=== PATIENT | male | born 1950 | race Caucasian/White ===

== ENCOUNTER 2021-01-30 07:48 | Outpatient (RCR) | payer MEDICARE, OTHER, SELFPAY ==
--- NOTE | 2021-01-30 08:56 | PTOPEVAL ---
Thank you for referring Derek Catsro to [facility].? The patient is scheduled to be seen for therapy? ____x/week for ___ weeks. Please review, sign, date and return this plan of care AIDA. I agree with and certify that the following plan of care is medically necessary. Referring Physician Date Admitting Provider: Attending Provider: Bakari Guallpa, MD Referring Provider: *PT Outpatient Evaluation Start: 01/30/21 07:52 Freq: Status: Active Protocol: Document 01/30/21 07:59 ACR (Rec: 01/30/21 08:55 ACR [email or web address]) Therapy Assessment Status Assessment Status Assessment Status Evaluation Evaluation Information Problem Diagnosis lateral and medial meniscus repair and arthroscopy Onset 01/20/21 Subjective Information Patient reports he plays Query Text:As Reported By Patient/ tennis and he was having Family trouble changing directions. He states walking was fine, but any time he went down steps or down hill he had quite a bit of pain. Patient states that since surgery he still has difficulty with going down steps and down hill . He also states that getting up from the floor because he cannot put weight through that knee. Patient states that his goal for therapy is to get back to tennis. Prior Level of Function Activity Level (Last 3 Months) Occupation retired Hand Dominance Right Activity of Daily Living Ability Independent Indoor/Home Mobility Independent Community Mobility Independent Stairs Ability Independent Functional Cognition (Planning, Shopping Independent , Taking Medications) Cooking Yes Cleaning Yes Laundry Yes Shopping Yes Driving Yes Pain Assessment Timing of Pain Assessment Timing of Pain Assessment Assessment Pain Scale Pain Scale Used Numeric (1 - 10) Self Report Pain Assessment Right Knee(s) Reported Pain Level 0 Greatest Pain Intensity 3 Pain Score Pain Score 0: Self Report Interventions Used Interventions Used By Clinicians Activity or ADL's,Exercise Lower Extremity Range of Motion Knee Range of Motion Right Knee Flexion Range of Motion - Active 111 Knee Extension Range of Motion - Act
--- NOTE | 2021-02-20 08:26 | PTOPEVAL ---
Thank you for referring Derek Castro to [facility].? The patient is scheduled to be seen for therapy? ____x/week for ___ weeks. Please review, sign, date and return this plan of care AIDA. I agree with and certify that the following plan of care is medically necessary. Referring Physician Date Admitting Provider: Attending Provider: Bakari Guallpa, Referring Provider: *PT Outpatient Evaluation Start: 01/30/21 07:52 Freq: Status: Active Protocol: Document 02/13/21 08:00 ACR (Rec: 02/13/21 09:01 ACR [email or web address]) Therapy Assessment Status Assessment Status Assessment Status Progress Evaluation Information Problem Diagnosis lateral and medial meniscus repair and arthroscopy Onset 01/20/21 Subjective Information Patient states that since Query Text:As Reported By Patient/ beginning therapy he states Family that he is feeling so much better. He states that his knee feels better than before the surgery. He states he jogged through the yard this weekend and it did not hurt. He states that going down the steps is much easier. He states that he has some difficulty with forward and backward running and side shuffling. Pain Assessment Timing of Pain Assessment Timing of Pain Assessment Assessment Pain Scale Pain Scale Used Numeric (1 - 10) Self Report Pain Assessment Right Knee(s) Reported Pain Level 0 Greatest Pain Intensity 0 Pain Score Pain Score 0: Self Report Interventions Used Interventions Used By Clinicians Activity or ADL's,Exercise Lower Extremity Muscle Strength Testing Knee Strength Right Knee Flexion Strength 5 Normal Knee Extension Strength 4 Good General Exercise General Exercises Exercise Description -Pt. performs nustep 10 Query Text:Record Sets, Reps, minutes level 6 with bilateral Resistance, and Position UE's and LE's for CV and LE mm warm up and endurance to return to prior level recreational activities. TherEx - heel/toe raises x 30 reps - hip abduction x 30 B - hip extension x 30 B - slantboard board stretch 3x1 minute knees extended
--- NOTE | 2021-03-15 09:06 | PTOPEVAL ---
Thank you for referring Derek Castro to [facility].? The patient is scheduled to be seen for therapy? ____x/week for ___ weeks. Please review, sign, date and return this plan of care AIDA. I agree with and certify that the following plan of care is medically necessary. Referring Physician Date Admitting Provider: Attending Provider: Bakari Guallpa, MD Referring Provider: *PT Outpatient Evaluation Start: 01/30/21 07:52 Freq: Status: Active Protocol: Document 03/15/21 07:58 ACR (Rec: 03/15/21 09:06 ACR [email or web address]) Therapy Assessment Status Assessment Status Assessment Status Progress Evaluation Information Problem Diagnosis lateral and medial meniscus repair and arthroscopy Onset 01/20/21 Subjective Information Patient states that it is Query Text:As Reported By Patient/ still feeling pretty good, but Family thinks he overdid it with the leg press and the pain was bad. He was playing a lot of tennis, but is resting right now because the pain is so bad and spent a majority of the holidays with ice on it. The patient reports going side to side is not as bad, but running forward and backward is very difficult for him. Pain Assessment Timing of Pain Assessment Timing of Pain Assessment Assessment Pain Scale Pain Scale Used Numeric (1 - 10) Self Report Pain Assessment Right Knee(s) Reported Pain Level 0 Greatest Pain Intensity 8 Pain Score Pain Score 0: Self Report Interventions Used Interventions Used By Clinicians Activity or ADL's,Exercise Lower Extremity Range of Motion Knee Range of Motion Right Knee Flexion Range of Motion - Active 0 Knee Extension Range of Motion - Active 125 Query Text: Lower Extremity Muscle Strength Testing Knee Strength Right Knee Flexion Strength 5 Normal Knee Extension Strength 5 Normal Extremity Circumference Assessment Circumference Assessment Location Right Body Part Knee Site Descriptor ([place]) medial joint line Circumference (cm) 39 Noninvolved Side Circumference (cm) 40 General Exercise General Exercises Exercise Description Ther Ex: Query Text:Record Sets, Reps, - slantboard stretch x 3 Resistance, and Position minutes - 8 minute on vibration plate at level 30 in squatting
--- NOTE | 2021-04-14 16:23 | PTOPEVAL ---
Thank you for referring Derek Castro to [facility].? The patient is scheduled to be seen for therapy? ____x/week for ___ weeks. Please review, sign, date and return this plan of care AIDA. I agree with and certify that the following plan of care is medically necessary. Referring Physician Date Admitting Provider: Attending Provider: Bakari Guallpa, MD Referring Provider: *PT Outpatient Evaluation Start: 01/30/21 07:52 Freq: Status: Active Protocol: Document 04/14/21 10:40 ACR (Rec: 04/14/21 11:45 ACR [email or web address]) Therapy Assessment Status Assessment Status Assessment Status Discharge Evaluation Information Problem Diagnosis lateral and medial meniscus repair and athoscopy Onset 01/20/21 Subjective Information Patient states that he is Query Text:As Reported By Patient/ doing a lot better since he Family got the shot in the knee. the only complaint that he has is that he is not fast enough when playing tennis. The patient reports that overall he can do whatever he needs to do. Pain Assessment Timing of Pain Assessment Timing of Pain Assessment Pre-Treatment Pain Scale Pain Scale Used Numeric (1 - 10) Self Report Pain Assessment Right Knee(s) Reported Pain Level 0 Greatest Pain Intensity 0 Pain Score Pain Score 0: Self Report Interventions Used Interventions Used By Clinicians Activity or ADL's,Exercise Lower Extremity Muscle Strength Testing Knee Strength Right Knee Flexion Strength 5 Normal Knee Extension Strength 5 Normal Left Knee Flexion Strength 5 Normal Knee Extension Strength 5 Normal General Exercise General Exercises Exercise Description TherEx: Query Text:Record Sets, Reps, - single leg press x 10 200#, Resistance, and Position x 10 240#, x 10 200# - double leg press x 10 400#, x 10 495# - side shuffling for 2 minutes - step downs 8 step x 15 - squats x 15 - lunges x 20 B on BOSU - vibration plate level 30, x 5 minutes to improve proprioception PT Clinical Summary Clinical Summary Protocol: PTEVCODE PT Clinical Summary Patient is a 70 year old male that participated in 17 visits s/p medial and lateral
== END 2021-04-14 16:34 | disposition home or self-care (01) ==
LOC: CHSPT 07:48
PROVIDERS: Visit Provider Specialist
DX: Z98.890 Other specified postprocedural states (principal)
CPT/HCPCS: 97016; 97110; 97140; 97161; 97530

== ENCOUNTER 2021-10-26 13:02 | Outpatient (RCR) | payer MEDICARE, OTHER, SELFPAY ==
--- NOTE | 2021-10-26 14:10 | PTOPEVAL ---
Thank you for referring Derek Castro to [facility].? The patient is scheduled to be seen for therapy? ____x/week for ___ weeks. Please review, sign, date and return this plan of care AIDA. I agree with and certify that the following plan of care is medically necessary. Referring Physician Date Admitting Provider: Attending Provider: Shawn Posada MD Referring Provider: *PT Outpatient Evaluation Start: 10/26/21 13:12 Freq: Status: Active Protocol: Document 10/26/21 13:05 Lucille (Rec: 10/26/21 14:08 Lucille [email or web address]) Therapy Assessment Status Assessment Status Assessment Status Evaluation Evaluation Information Problem Diagnosis TKA, CIERA procedure Onset 10/25/21 Additional Evaluation Detail LEFS = 90% functionally declined Subjective Information patient reports he had TKA on Query Text:As Reported By Patient/ the R knee yesterday (10/25/21 Family ). he reports he had surgery using the CIERA surgical device . he reports he is planning on having his other knee done in a few months. he reports he is sore in the R knee and is having trouble moving it and walking on it. he reports he is to use a knee brace for 3 days post op for stability per the surgeons orders. Prior Level of Function Comments Additional Prior Level of Function prior to surgery, patient was Comments having pain in the R knee, but was able to participate in recreational sports playing tennis. he reports he was in pain, but using a lot of OTC remedies for pain. he reports he was limping due to pain. Pain Assessment Timing of Pain Assessment Timing of Pain Assessment Assessment Pain Scale Pain Scale Used Numeric (1 - 10) Self Report Pain Assessment Right Knee(s) Reported Pain Level 3 Pain Frequency Acute,Continuous Lowest Pain Intensity 1 Greatest Pain Intensity 6 Pain Score Pain Score 3: Self Report Interventions Used Interventions Used By Clinicians Activity or ADL's,Education, Exercise Lower Extremity Range of Motion Knee Range of Motion Left Knee Flexion Range of Motion - Active 120 Knee Extension Range of Motion - Active 0 Query Text: Right Knee Flexion Range of Motion - Activ
--- NOTE | 2021-12-01 09:56 | PTOPPROG ---
Assessment and note entered by Flakita Hays DPT Evaluation Information Assessment Status Progress Diagnosis TKA, CIERA procedure Onset 10/25/2021 Subjective Information Pt reports that his R knee has been feeling great. His pain is very minimal and only occurs when lowering to the ground, lunging, or stepping down. He has his L TKA on Wednesday 12/06. Assessment PT Clinical Summary Pt presents to physical therapy s/p R TKA on 2021 with significant improvements in pain, strength, edema, gait pattern, and range of motion since his initial evaluation. He is scheduled for a TKA of his L knee next 12/06/2021 and will return for skilled PT after this to facilitate symptom relief and return to all functional and recreational activities. Plan of Care PT Services Indicated Yes These treatments will address the objective and functional deficits as defined above. The patient will be advanced safely and appropriately in order for the patient to progress towards his/her prior level of function. Additional exercises will be introduced and as well as a comprehensive home exercise program upon discharge, if needed, ?to ensure carryover of functional gains achieved in the clinic. This treatment plan has been reviewed and agreement upon by the patient.
--- NOTE | 2021-12-18 10:48 | PTOPREEVAL ---
Assessment and note entered by Maribel Trivedi, PT Evaluation Information Assessment Status Re-evaluation Diagnosis s/p L TKA Onset 12/06/21 Subjective Information Derek reports he had a left total knee replacement on 12/06/21 due to osteoarthritis. He reports he is trying to perform exercises and rode a stationary bike for the first time on 12/15/21. He is noting increased pain with bending the left knee. He is able to go up stairs easily but has difficulty and increased pain going down stairs. Reported Pain Level Pain Score 0,3: Self Report Assessment PT Clinical Summary Derek Castro presents 12 days s/p left total knee arthroplasty. He had a right total knee arthroplasty 8 weeks ago. He is reporting increased pain and difficulty with bending the left knee and going down stairs. He objectively demonstrates decreased left knee AROM, decreased left knee and hip strength, impaired gait, and impaired balance. He will benefit from skilled PT to address these limitations. Plan of Care Interventions Electrical Stimulation,Hot Pack/Cold Pack,Manual Therapy,Neuro Re-education,Therapeutic Activities, Therapeutic Exercise PT Services Indicated Yes Treatment Frequency and 3 times a week for 18 visits Duration These treatments will address the objective and functional deficits as defined above. The patient will be advanced safely and appropriately in order for the patient to progress towards his/her prior level of function. Additional exercises will be introduced and as well as a comprehensive home exercise program upon discharge, if needed, ?to ensure carryover of functional gains achieved in the clinic. This treatment plan has been reviewed and agreement upon by the patient.
--- NOTE | 2022-01-16 09:35 | PTOPDC ---
Assessment and note entered by Flakita Hays DPT Evaluation Information Assessment Status Discharge Diagnosis s/p L TKA Onset 12/06/21 Subjective Information Pt reports that his knees have been feeling a lot better. He returned to playing tennis the other day without pain or difficulty. He notes that his knee is doing well with all lateral movements, but he just doesn't feel as fluid with running forward. Reported Pain Level Pain Score 0,0: Self Report Assessment PT Clinical Summary Pt presents to PT after L TKR on 12/06/21 and demonstrates significant improvements in pain, range of motion, strength, and gait pattern. While his bilateral knee flexion ROM is very functional , it is still slightly decreased for his recreational activities, leading to an altered running pattern. He was educated to continue his current activity level and focus on improving his knee flexion for his recreational activities such as tennis. He is to be discharged from skilled PT at this time and is to follow-up as needed. Plan of Care PT Services Indicated No
== END 2022-01-16 10:09 | disposition home or self-care (01) ==
LOC: CHSPT 13:02
PROVIDERS: PCP Family Medicine; Visit Provider Specialist
DX: Z96.651 Presence of right artificial knee joint (principal); M25.562 Pain in left knee; M25.561 Pain in right knee
CPT/HCPCS: 97016; 97110; 97140; 97161; 97530

== ENCOUNTER 2024-09-24 14:22 | Outpatient (RCR) | payer MEDICARE, OTHER, SELFPAY ==
--- NOTE | 2024-09-24 15:37 | OPREHPOC ---
Outpatient Therapy Plan of Care This is a Multidisciplinary Plan of Care that may contain components documented by all disciplines (PT, OT, and ST.) PT Problem 1 PT Problem #1 Knowledge Deficit PT Goal 1 Goal / Goal Update independent and compliant with HEP Target Visit 2 PT Problem 2 PT Problem #2 Pain PT Goal 1 Goal / Goal Update patient to report no more than 2/10 pain at worst in the last week Target Visit 4 PT Problem 3 PT Problem #3 Impaired Functional Mobility PT Goal 1 Goal / Goal Update patient to report no instability incidents of the L shoulder in the last week patient to safely lift 10lbs away from body with the L UE without subluxation of the shoulder patient to return to tennis play without limitations Target Visit 4 PT Problem 4 PT Problem #4 Impaired Strength PT Goal 1 Goal / Goal Update 1. 4+/5 or better overall L shoulder strength without compensation Target Visit 4
--- NOTE | 2024-09-24 15:37 | PTOPEVAL1 ---
Assessment and note entered by JT File, PT Evaluation Information Assessment Status Evaluation Diagnosis L shoulder ICD-10 Condition Codes (PT) Pain in left shoulder M25.512 Onset 09/18/24 Subjective Information patient reports he felt the L shoulder pop out last saturday. he reports it was very painful after this happened. he reports the shoulder now hurts all the time along the side of the shoulder and the night time is the worst as he is unable to sleep. he reports he was able to ride his tuyet around town today. he has a replacement of the L shoulder back in 2019. Reported Pain Level Pain Score 3: Self Report Assessment PT Clinical Summary mr. garcia presents to skilled PT with pain in the L shoulder and L UT from an injury where his shoulder subluxed while reaching behind him and lifting. he has history of L shoulder reverse replacement but also admits to several inidents of dislocation or sublexation of the shoulder since this replacement. he displays weakness of the L shoulder today, and pain in the lateral shoulder and L UT. continued skilled PT that includes dry needling is advised to improve patients function and allow him to return to his prior hobbies. Plan of Care Interventions Electrical Stimulation,Hot Pack/Cold Pack,Manual Therapy,Neuro Re-education,Patient/Caregiver Education,Therapeutic Activities,Therapeutic Exercise,Other Other Interventions dry needling PT Services Indicated Yes Treatment Frequency and 1x weekly for 4 visits Duration These treatments will address the objective and functional deficits as defined above. The patient will be advanced safely and appropriately in order for the patient to progress towards his/her prior level of function. Additional exercises will be introduced and as well as a comprehensive home exercise program upon discharge, if needed, ?to ensure carryover of functional gains achieved in the clinic. This treatment plan has been reviewed and agreement upon by the patient.
--- NOTE | 2024-10-15 08:03 | OPREHPOC ---
Outpatient Therapy Plan of Care This is a Multidisciplinary Plan of Care that may contain components documented by all disciplines (PT, OT, and ST.) PT Problem 1 PT Problem #1 Knowledge Deficit PT Goal 1 Goal / Goal Update independent and compliant with HEP Target Visit 2 Progress Met PT Problem 2 PT Problem #2 Pain PT Goal 1 Goal / Goal Update patient to report no more than 2/10 pain at worst in the last week Target Visit 4 Progress Met PT Problem 3 PT Problem #3 Impaired Functional Mobility PT Goal 1 Goal / Goal Update patient to report no instability incidents of the L shoulder in the last week. met patient to safely lift 10lbs away from body with the L UE without subluxation of the shoulder. not met patient to return to tennis play without limitations. met Target Visit 4 Progress Partially Met PT Problem 4 PT Problem #4 Impaired Strength PT Goal 1 Goal / Goal Update 1. 4+/5 or better overall L shoulder strength without compensation. not met Target Visit 4 Progress Not Met
--- NOTE | 2024-10-15 08:03 | PTOPDC ---
Assessment and note entered by JT File, PT Evaluation Information Assessment Status Discharge Diagnosis L shoulder ICD-10 Condition Codes (PT) Pain in left shoulder M25.512 Onset 09/18/24 Subjective Information patient reports he feels pretty good today. he reports he has more issue with the R shoulder than the L shoulder. Reported Pain Level Pain Score 0: Self Report Assessment PT Clinical Summary mr. garcia presents to skilled PT for his 4th skilled therapy visit for L shoulder pain. he reports no pain in the L shoulder any longer. he reports he has returned to tennis play and is bothered more by issues with the R shoulder and needing surgery on it. he continues to display weakness of the L shoulder, especially in ER. he will continue with HEP independent at home and at the gym to improve shoulder strength and stability . Plan of Care PT Services Indicated Yes
== END 2024-10-15 20:00 | disposition home or self-care (01) ==
LOC: CHSPT 14:22
PROVIDERS: Visit Provider Nurse Practitioner Family
DX: M25.512 Pain in left shoulder (principal)
CPT/HCPCS: 97110; 97140; 97161

== ENCOUNTER 2024-11-29 10:05 | Emergency (ER) | payer MEDICARE, OTHER, SELFPAY ==
[2024-11-29 10:07] VITALS: BP 141/93; PULSE 94; RESP 18; TEMP 36.6; O2SAT 96
--- OUTSIDE RECORDS SUMMARY | 2024-11-29 10:07 | XMS_ITS | Clinical Summary ---
Author Organization [facility] Address Formerly [facility] [place] [address] Care Team Providers Care Coo & Co Founder Name Role Phone Gracy Rodriguez MD Unavailable Reyna Brennan MD Primary Care Provider [phone] Allergies Active Allergy Reactions Criticality Noted Date Comments Oxycodone Itching,Angioedema 10/02/2023 Medications fenofibrate (TRICOR) 54 MG tablet Take 1 tablet (54 mg total) by mouth nightly at bedtime. 09/26/19 15 Active levothyroxine (SYNTHROID) 88 MCG tablet Take 1 tablet (88 mcg total) by mouth daily. 01/14/20 21 Active omeprazole (PRILOSEC) 40 MG capsule Take 1 capsule (40 mg total) by mouth nightly at bedtime. 06/16/19 22 Active terazosin (HYTRIN) 10 MG capsule Take 1 capsule (10 mg total) by mouth nightly at bedtime. 06/16/19 22 Active testosterone cypionate (DEPO TESTOSTERONE) 200 MG/ML injection Inject 1 mL (200 mg total) into the muscle every 14 (fourteen) days. 06/04/19 22 Active aspirin 81 MG chewable tablet Chew 1 tablet (81 mg total) by mouth daily. Active sildenafil (REVATIO) 20 MG tablet Take 1 tablet (20 mg total) by mouth as needed. 07/24/19 24 Active fluticasone (CUTIVATE) 0.05 % cream Apply topically as needed. 09/16/19 24 Active fluorometholon e (FML) 0.1 % ophthalmic suspension Place 1 drop into both eyes 2 (two) times daily. 10/28/19 24 Active metoprolol succinate ER (TOPROL-XL) 25 MG 24 hr tablet Take 1/2 (one-half) tablet by mouth once daily 45 tablet 3 08/27/19 25 Active rosuvastatin (CRESTOR) 20 MG tablet TAKE 1 TABLET BY MOUTH NIGHTLY AT BEDTIME 90 tablet 11/18/19 25 Active clopidogrel (PLAVIX) 75 MG tablet Take 1 tablet by mouth once daily 90 tablet 11/18/19 25 Active nitroglycerin (NITROSTAT) 0.[address] 1 tablet (0.4 mg total) under the tongue every 5 (five) minutes as needed for Chest Pain. Maximum of 3 doses. 30 tablet 1 11/20/19 24 025 rosuvastatin (CRESTOR) 20 MG tablet Take 1 tablet (20 mg total) by mouth nightly at bedtime. 90 tablet 3 11/20/19 24 025 Discontinued clopidogrel (PLAVIX) 75 MG tablet Take 1 tablet by mouth once daily 90 tablet 09/15/19 25 025 Discontinued Active Problems Problem Noted Date Diagnosed Date S/P reverse total shoulder arthroplasty, left Neck pain 11/26/2018 Left ACL tear 09/02/2018 Encounters Date Type Department Care Team Description 11/24/2024 6:55 AM CDT - 11/24/2024 11:59 PM CDT Hospital Encounter [facility] [address] [place] [place] [address] Bakari Persaud MD Discharge Disposition: Home or Self Care (Routine Discharge) 11/24/2024 Travel from Last 3 Months Family History Medical History Relation Comments Osteoarthritis Sister Relation Status Comments Sister Social History Tobacco Use Types Packs/Day Years Used Date Smoking Tobacco: Never Cigarettes Smokeless Tobacco: Never Snuff Alcohol Use Standard Drinks/Week Comments Yes 0 (1 standard drink = 0.6 oz pur e alcohol) weekends Sex and Gender Information Value Date Recorded Sex Assigned at Male 04/01/2024 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 Sex Male 9:50 PM MOTION GRAPHICS ARTIST Gender Identity Not on file Sexual Orientation Not on file Last Filed Vital Signs Vital Sign Reading Time Taken Comments Blood Pressure 120/76 07/03/2024 8:47 AM CDT Pulse 82 07/03/2024 8:47 AM CDT Temperature 36.3 C (97.3 F) 11/22/2023 7:35 AM CDT Respiratory Rate 16 07/03/2024 8:47 AM CDT Oxygen Saturation 96% 07/03/2024 8:47 AM CDT Inhaled Oxygen Concentration - - Weight 110 kg (242 lb 9.6 oz) 07/03/2024 8:47 AM CDT Height 180.3 cm (5' 11) 07/03/2024 8:47 AM CDT Body Mass Index 33.84 07/03/2024 8:47 AM CDT Plan of Treatment Upcoming Encounters Date Type Department Care Team (Late st Contact Info) Description 06/23/2025 9:[address] [facility] [address] [place], [place] [address] [address] Gracy Rodriguez MD [address], [place] [address] 07/12/2025 10:00 AM CDT Office Visit [facility] [address] [place] [address] Gracy Rodriguez MD [address], [place] [id number] Health Maintenance Due Date Last Done Comments Colorectal Cancer Screening Colonoscopy (10 Years) 1950 Hepatitis C 05/15/1969 DTaP, Tdap and Td Vaccines ( 1 - Tdap) 05/15/1970 Zoster Vaccines (1 of 2) 05/15/2001 RSV Immunization or 60+ Years (1 - Risk 60-74 years 1-dose series) 2011 Annual Medicare Wellness Visit 05/15/2016 Pneumococcal Vaccine: 50+ Years (2 of 2 - PPSV23) 01/31/2019 12/06/2018 COVID-19 Vaccine (4 - 2024-2 6 season) 2024 01/31/2021, 05/11/2020, 04/20/2020 Meningococcal B Vaccine Aged Out No l onger eligible based on patient's age to complete this topic Meningococcal Vaccine Aged Out No rivera hugh eligible based on patient's age to complete this topic RSV Immunizations Under 20 Months Aged Out No longer eligible b ased on patient's age to complete this topic Goals Goal Patient Goal Type Associated Problems Recent Progress Patient-Stated? Author Safety - demonstrates understanding of home safety measures Lifestyle Gabby Haddad RN Safety - demonstrates understanding of home safety measures Lifestyle No Gabby Joy RN Medical Devices Implanted Type Area Accounts Payable Specialist Device Identifier Shelf Expiration Date Model / Serial / Lot Component Femoral 5 Knee Right Cruciate Retain Bead Triathlon Pa - [id number] Implanted:Qt y: 1 on 10/25/2021 by Shawn Posada MD at [facility] Knee Components [employer] [id number] 02/11/2026 5517-F-5 02 / / [id number] Baseplate Tibial Triathlon 6 Knee Tritanium - [id number] Implanted:Qt y: 1 on 10/25/2021 by Shawn Posada MD at [facility] Knee [employer] [id number] 06/27/2026 5536-B-6 00 / / [id number] Baseplate Tibial Triathlon 7 Knee Tritanium - [id number] Implanted:Qt y: 1 on 12/06/2021 by Shawn Posada MD at [facility] Knee Components Left: Knee [employer] 07/18/2026 5536-B-7 00 / / [id number] Cv Biotronik Orsiro 2.5mm X 26mm Thomas Dist Lad-11/22/2023 Implanted: by Nikolay Rausch MD (Quantity not on file) Stent Coronary LAD BIOTRONIK 04/22/2025 [id number] / / [id number] Cv Biotronik Orsiro 3.5mm X 26mm Thomas Mid Lad-11/22/2023 Implanted: by Nikolay Rausch MD (Quantity not on file) Stent Coronary LAD BIOTRONIK 06/29/2025 [id number] / / [id number] Triathlon Tibial Bearing Insert Implanted:Qt y: 1 on 10/25/2021 by Shawn Posada MD at [facility] [id number] 01/04/2025 5531-G-6 11-E / / [id number] Triathlon Cruciate Retaining Femoral Implanted:Qt y: 1 on 12/06/2021 by Shawn Posada MD at [facility] Left: Knee [employer] 06/20/2026 5517-F-6 01 / / [id number] Triathlon X3 Tibial Bearing Insert - Cs Implanted:Qt y: 1 on 12/06/2021 by Shawn Posada MD at [facility] Left: Knee [employer] 11/22/2025 5531-G-7 09-E / / [id number] Explanted Type Area Accounts Payable Specialist Device Identifier Shelf Expiration Date Model / Serial / Lot [place] Bone Aden 110 X 4 - [id number] Explanted:Qty: 1 on 10/25/2021 at [facility] Pin [employer] [id number] / / Pin [place] Bone Aden 140 X 4 - [id number] Explanted:Qty: 1 on 10/25/2021 at [facility] Pin [employer] [id number] / / Pin Migel Bone Aden 110 X 4 - [id number] Explanted:Qty: 1 on 12/06/2021 by Shawn Posada MD at [facility] Pin Left: Knee [employer] 04/27/2026 [id number] / / [id number] [place] Bone Aden 140 X 4 - [id number] Explanted:Qty: 1 on 12/06/2021 by Shawn Posada MD at [facility] Pin Left: Knee [employer] 06/26/2026 [id number] / / [id number] Procedures Procedure Name Priority Date/Time Associated Diagnosis Comments NM BONE SCAN 3 PHASE Routine 11/24/2024 11:15 AM CDT Right shoulder pain Left shoulder pain from Last 3 Months Results * NM BONE SCAN 3 PHASE (11/24/2024 11:15 AM CDT) Anatomical Region Laterality Modality Bone Nuclear Medicine 11/24/2024 12:5 0 PM CDT Impressions 11/24/2024 12:57 PM CDT IMPRESSION: 1. No 3-phase positive uptake about the left shoulder arthroplasty to suggest complication. Mildly increased osseous uptake about the arthroplasty is favored to be reactive. 2. Increased osseous and soft tissue uptake about the right shoulder, likely secondary to inflammation and significant degenerative change. 3. Multifocal osteoarthritic degenerative uptake elsewhere as detailed above. Ordered By: BAKARI PERSAUD Interpreted By: Trista Turcios MD, 11/24/2024 12:50 PM Narrative 11/24/2024 12:57 PM [address]T [address] [place] [address] EXAMINATION: BONE SCINTIGRAPHY (THREE-PHASE) DATE OF STUDY: 11/24/2024 RADIOPHARMACEUTICAL: 28.2 mCi Tc-99m MDP i.v. HISTORY: Left shoulder replacement in 2019, evaluate for loosening. Bilateral shoulder pain for 2 years. FINDINGS: A three-phase examination of the shoulders was performed consisting of radionuclide angiography and immediate post-injection images of the shoulders,and delayed images of the shoulders. Prior nuclear medicine studies used for comparison: none. Other radiographic comparisons: Chest x-ray 04/01/2024, CT left shoulder and MRI right shoulder 11/24/2024 Angiographic phase imaging, there is no focal hyperemia about either shoulder. On blood pool phase imaging, no focal soft tissue uptake about the left shoulder arthroplasty. There is a photopenic defect from the left shoulder arthroplasty. There is mildly increased soft tissue uptake about the right shoulder. On osseous phase imaging, there is mild uptake about the glenoid component of the left shoulder arthroplasty and left proximal humerus which is favored to be reactive. No intense focal uptake is visualized. There is significantly increased osseous uptake throughout the right shoulder. Whole-body images reveal photopenic defects from knee arthroplasties. No focal or intense uptake about the knee arthroplasties to suggest complication. There is multifocal osteoarthritic degenerative pattern of uptake involving the sternoclavicular joints, sternomanubrial junction, included right elbow, wrists, hands, spine particularly the lumbar spine, ankles, and feet. Procedure Note Trista Turcios MD - 11/24/2024 [place] [address] [place] [address] EXAMINATION: BONE SCINTIGRAPHY (THREE-PHASE) DATE OF STUDY: 11/24/2024 RADIOPHARMACEUTICAL: 28.2 mCi Tc-99m MDP i.v. HISTORY: Left shoulder replacement in 2019, evaluate for loosening.Bilateral shoulder pain for 2 years. FINDINGS: A three-phase examination of the shoulders was performedconsisting of radionuclide angiography and immediate post-injectionimages of the shoulders,and delayed images of the shoulders. Prior nuclear medicine studies used for comparison: none. Other radiographic comparisons: Chest x-ray 04/01/2024, CT left shoulderand MRI right shoulder 11/24/2024 Angiographic phase imaging, there is no focal hyperemia about eithershoulder. On blood pool phase imaging, no focal soft tissue uptake about the leftshoulder arthroplasty. There is a photopenic defect from the left shoulderarthroplasty. There is mildly increased soft tissue uptake about the rightshoulder. On osseous phase imaging, there is mild uptake about the glenoid componentof the left shoulder arthroplasty and left proximal humerus which isfavored to be reactive. No intense focal uptake is visualized. There issignificantly increased osseous uptake throughout the right shoulder. Whole-body images reveal photopenic defects from knee arthroplasties. Nofocal or intense uptake about the knee arthroplasties to suggestcomplication. There is multifocal osteoarthritic degenerative pattern ofuptake involving the sternoclavicular joints, sternomanubrial junction,included right elbow, wrists, hands, spine particularly the lumbar spine,ankles, and feet. IMPRESSION: 1. No 3-phase positive uptake about the left shoulder arthroplasty tosuggest complication. Mildly increased osseous uptake about thearthroplasty is favored to be reactive. 2. Increased osseous and soft tissue uptake about the right shoulder,likely secondary to inflammation and significant degenerative change. 3. Multifocal osteoarthritic degenerative uptake elsewhere as detailedabove. 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
--- OUTSIDE RECORDS SUMMARY | 2024-11-29 10:07 | XMS_ITS | Encounter Summary ---
Author Organization [facility] Address [address] [place] [address] Care Team Providers Care Stevedore Hold Name Role Phone Gracy Rodriguez MD Unavailable Reyna Brennan MD Primary Care Provider [phone] Encounter Details Date Type Department Care Team (Late st Contact Info) Description 07/15/2024 [employer] Message [facility] [place] [facility] [address] [place] [address] [facility] Provider Result Social History Tobacco Use Types Packs/Day Years Used Date Smoking Tobacco: Never Cigarettes Smokeless Tobacco: Never Snuff Alcohol Use Standard Drinks/Week Comments Yes 0 (1 standard drink = 0.6 oz pur e alcohol) weekends Sex and Gender Information Value Date Recorded Sex Assigned at Male 04/01/2024 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 Answer Date of Assessment Author Status No 12/06/2021 6:00 PM CDT Activ e * Do you have serious difficulty walking or climbing stairs? Answer Date of Assessment Author Status Yes 12/06/2021 6:00 PM CDT Yuko Sandoval RN Active * Do you have difficulty dressing or bathing? Answer Date of Assessment Author Status Yes 12/06/2021 6:00 PM CDT Yuko Sandoval RN Active * Because of a physical, mental, or emotional condition, do you have difficulty doing errands alone such as visiting a doctor's office or shopping? Answer Date of Assessment Author Status Yes 12/06/2021 6:00 PM CDT Yuko Sandoval RN Active documented as of this encounter Mental Status * Because of a physical, mental, or emotional condition, do you have serious difficulty concentrating, remembering, or making decisions? Answer Entry Date Author Status No 12/06/2021 6:00 PM CDT Yuko Sandoval RN Active documented in this encounter Plan of Treatment Upcoming Encounters Date Type Department Care Team (Late st Contact Info) Description 06/23/2025 9:[address] [facility] [address] [place], [place] [phone] Gracy Rodriguez MD [address] [place] [address] 07/12/2025 10:00 AM CDT Office Visit [facility] [address] [place] [address] Gracy Rodriguez MD [address] [place] [address] documented as of this encounter Goals Goal Patient Goal Type Associated Problems Recent Progress Patient-Stated? Author Safety - demonstrates understanding of home safety measures Lifestyle No Gabby Joy RN Safety - demonstrates understanding of home safety measures Lifestyle No Gabby Joy RN documented as of this encounter Visit Diagnoses Not on filedocumented in this encounter Care Teams Stevedore Hold Relationship Specialty Start Date End Date Reyna Brennan MD [address] [place] [address] PCP - General FAMILY PRACTICE 06/09/24 Gracy Rodriguez MD [address] [place], [place] [phone] Consulting Physician CARDIOVASCULAR DISEASE 10/08/23 documented as of this encounter
--- OUTSIDE RECORDS SUMMARY | 2024-11-29 10:07 | XMS_ITS | Encounter Summary ---
Author Organization [facility] Address [address] [place] [address] Care Team Providers Care Hat Designer Name Role Phone Nikolay Gtz MD Primary Care Provider [phone] Gracy Rodriguez MD Unavailable Reyna Brennan MD Primary Care Provider [phone] Encounter Details Date Type Department Care Team (Late st Contact Info) Description 10/15/2023 Last 2 Left Message [facility] [address] [place] [address] [facility] follow up Social History Tobacco Use Types Packs/Day Years Used Date Smoking Tobacco: Never Cigarettes Smokeless Tobacco: Never Snuff Alcohol Use Standard Drinks/Week Comments Yes 0 (1 standard drink = 0.6 oz pur e alcohol) weekends Sex and Gender Information Value Date Recorded Sex Assigned at Male 04/01/2024 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 [address] [place], [place] [phone] Gracy Rodriguez MD [address] [place] [address] 07/12/2025 10:00 AM CDT Office Visit [facility] [address] [place] [address] Gracy Rodriguez MD [address] [place] [address] documented as of this encounter Goals Goal Patient Goal Type Associated Problems Recent Progress Patient-Stated? Author Safety - demonstrates understanding of home safety measures Lifestyle No Gabby Joy RN Safety - demonstrates understanding of home safety measures Lifestyle No Gabby Joy RN documented as of this encounter Visit Diagnoses Not on filedocumented in this encounter Care Teams Hat Designer Relationship Specialty Start Date End Date Nikolay Gtz MD [address] [place] [address] PCP - General FAMILY PRACTICE 09/22/21 06/08/24 Reyna Brennan MD [address] [place] [address] PCP - General FAMILY PRACTICE 06/09/24 Gracy Rodriguez MD [address] [place] [address] Consulting Physician CARDIOVASCULAR DISEASE 10/08/23 documented as of this encounter
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
--- OUTSIDE RECORDS SUMMARY | 2024-11-29 10:38 | XMS_ITS | Encounter Summary ---
Author Organization [facility] Address [address] [place] [address] Care Team Providers Care Direct Care Provider Name Role Phone Nikolay Gtz MD Primary Care Provider [phone] Gracy Rodriguez MD Unavailable Reyna Brennan MD Primary Care Provider [phone] Encounter Details Date Type Department Care Team (Late st Contact Info) Description 10/15/2023 [email or web address] Message [email or web address] [address] [place] [address] [facility] Provider follow up Social History Tobacco Use Types Packs/Day Years Used Date Smoking Tobacco: Never Cigarettes Smokeless Tobacco: Never Snuff Alcohol Use Standard Drinks/Week Comments Yes 0 (1 standard drink = 0.6 oz pur e alcohol) weekends Sex and Gender Information Value Date Recorded Sex Assigned at Male 04/01/2024 9:35 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 [address] [place] [place], [place] [id number] Gracy Rodriguez MD [address] [place] [address] 07/12/2025 10:00 AM CDT Office Visit [facility] [address] [place] [address] Gracy Rodriguez MD [address] [place] [address] documented as of this encounter Goals Goal Patient Goal Type Associated Problems Recent Progress Patient-Stated? Author Safety - demonstrates understanding of home safety measures Lifestyle No Gabby Joy RN Safety - demonstrates understanding of home safety measures Lifestyle No Gabby Joy RN documented as of this encounter Visit Diagnoses Not on filedocumented in this encounter Care Teams Direct Care Provider Relationship Specialty Start Date End Date Nikolay Gtz MD [address] [place] [address] PCP - General FAMILY PRACTICE 09/22/21 06/08/24 Reyna Brennan MD [address] [place] [address] PCP - General FAMILY PRACTICE 06/09/24 Gracy Rodriguez MD [address] [place] [address] Consulting Physician CARDIOVASCULAR DISEASE 10/08/23 documented as of this encounter
--- OUTSIDE RECORDS SUMMARY | 2024-11-29 10:38 | XMS_ITS | Encounter Summary ---
Author Organization [facility] Address [address] [place] [address] Care Team Providers Care Tire Specialist Name Role Phone Gracy Rodriguez MD Unavailable Reyna Brennan MD Primary Care Provider [phone] Encounter Details Date Type Department Care Team (Late st Contact Info) Description 07/15/2024 [employer] Message [facility] [address] [place] [address] [facility] Result Social History Tobacco Use Types Packs/Day Years Used Date Smoking Tobacco: Never Cigarettes Smokeless Tobacco: Never Snuff Alcohol Use Standard Drinks/Week Comments Yes 0 (1 standard drink = 0.6 oz pur e alcohol) weekends Sex and Gender Information Value Date Recorded Sex Assigned at Male 04/01/2024 9:35 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 [facility] [address] [place], [place] [phone] Gracy Rodriguez MD [address] [place] [address] 07/12/2025 10:00 AM CDT Office Visit [facility] [address] [place] [address] Gracy Rodriguez MD [address] [place] [address] documented as of this encounter Goals Goal Patient Goal Type Associated Problems Recent Progress Patient-Stated? Author Safety - demonstrates understanding of home safety measures Lifestyle No Gabby Joy RN Safety - demonstrates understanding of home safety measures Lifestyle No Gabby Joy RN documented as of this encounter Visit Diagnoses Not on filedocumented in this encounter Care Teams Tire Specialist Relationship Specialty Start Date End Date Reyna Brennan MD [address] [place] [address] PCP - General FAMILY PRACTICE 06/09/24 Gracy Rodriguez MD [address] [place], [place] [phone] Consulting Physician CARDIOVASCULAR DISEASE 10/08/23 documented as of this encounter
[2024-11-29] MEDS: TETANUS,DIPHTHERIA,AC PERTUSSIS ADULT 0.5 ML (ADACEL) IM (11:09)
[2024-11-29 11:14] VITALS: BP 141/93; PULSE 94; RESP 18; TEMP 36.6; O2SAT 96
== END 2024-11-29 11:14 | disposition short-term general hospital (02) ==
PROVIDERS: Emergency Provider Internal Medicine Critical Care Medicine; PCP Family Medicine
DX: S05.8X1A Other injuries of right eye and orbit, initial encounter (principal); I25.10 Atherosclerotic heart disease of native coronary artery without angina pectoris; I10 Essential (primary) hypertension; Z79.82 Long term (current) use of aspirin; Z79.01 Long term (current) use of anticoagulants; E78.5 Hyperlipidemia, unspecified; E03.9 Hypothyroidism, unspecified; W22.8XXA Striking against or struck by other objects, initial encounter; Z23 Encounter for immunization
CPT/HCPCS: 90471; 90715; 99282